=== PATIENT | female | born 1960 | race Caucasian/White ===

== ENCOUNTER 2017-08-29 02:15 | Outpatient (CLI) | payer OTHER ==
[~2017-08-29 02:15] MED LIST: HYDR-2362 PO
[2017-08-30 02:05] LABS: HEMATOCRIT 41.5 % (36-48); HEMOGLOBIN 13.6 g/dL (12.0-16.0); MEAN CORPUSCULAR HEMOGLOBIN 32 pg (27-31); MEAN CORPUSCULAR HGB CONC 33 g/dL (33-37); MEAN CORPUSCULAR VOLUME 99 fL (80-94); PLATELET COUNT (AUTO) 216 K/uL (140-450); RED BLOOD CELL COUNT(AUTO) 4.21 MIL/uL (4.20-5.40); RED CELL DISTRIBUTION WIDTH 12.4 % (11.6-13.7); WHITE BLOOD COUNT (AUTO) 6.3 K/uL (4.8-10.8)
[2017-08-30 02:32] LABS: ALBUMIN 3.9 g/dL (3.4-5.0); ANION GAP 15.2 (8-16); CARBON DIOXIDE 26.6 mmol/L (21-32); CHOL/HDL RATIO 2.5 (1-4.5); CREATININE 1.6 mg/dL (0.6-1.3); THYROID STIMULATING HORMONE 1.19 uIU/mL (0.34-3.74); TOTAL BILIRUBIN 0.6 mg/dL (0.0-1.0)
[2017-08-30 02:48] LABS: LYMPHOCYTES % (MANUAL) 31 % (20-46); MONOCYTES % (MANUAL) 9 % (5-12)
[2017-08-30 04:54] LABS: POTASSIUM 2.8 mmol/L (3.5-5.1)
== END 2017-08-29 17:31 | disposition home or self-care (01) ==
LOC: MLB 02:15
PROVIDERS: ATTEND Internal Medicine Geriatric Medicine
DX: Z76.89 Persons encountering health services in other specified circumstances (principal)
CPT/HCPCS: 36415; 80053; 82306; 83036; 84443; 85025

== ENCOUNTER 2019-01-18 02:55 | Emergency (ER) | payer OTHER ==
[~2019-01-18] VITALS: Ht 157.5 cm; Wt 61.2 kg
--- NOTE | 2019-01-18 02:55 | NUR ---
PT TAKEN TO BED 10
--- NOTE | 2019-01-18 02:55 | NUR ---
58 YO F BIB SELF PRESENTS TO THE ER WITH C/O INTERMITTENT N/V X 2 DAYS. DENIES ABD. PAIN, DIARRHEA, CONSTIPATION, OR URINARY COMPLAINTS. -- PT REPORTS NAUSEA AT THIS TIME. LAST EMESIS 1 HOUR AGO. -- SEVERE BILATERAL ARM/HAND TREMORS NOTED. -- PT APPEARS ANXIOUS BUT IS COOPERATIVE. ANSWERS QUESTIONS APPROPRIATELY. PT POSITIONED FOR COMFORT. HOB ELEVATED. BED IN LOWEST POSITION. VS ELEVATED. DR. BEAVER MADE AWARE.
[2019-01-18 02:57] VITALS: BP 165/92
[2019-01-18] MEDS ORDERED: NACL 0.9% 1,000 ML IV ONE (03:10)
[2019-01-18] MEDS ORDERED: ONDANSETRON 4 MG/2 ML VIAL IVP ONE (03:10)
[2019-01-18 03:17] LABS: BASOPHILS % (AUTO) 0.3 % (0.0-2.0); EOSINOPHILS % (AUTO) 0.8 % (0.0-4.0); HEMATOCRIT 36.4 % (36-48); HEMOGLOBIN 12.4 g/dL (12.0-16.0); LYMPHOCYTES # (AUTO) 0.9 K/uL (2.5-16.5); LYMPHOCYTES % (AUTO) 15.8 % (20.5-51.1); MEAN CORPUSCULAR HEMOGLOBIN 33 pg (27-31); MEAN CORPUSCULAR HGB CONC 34 g/dL (33-37); MEAN CORPUSCULAR VOLUME 97.5 fL (80-94); MONOCYTES # (AUTO) 0.4 K/uL (0.8-1.0); NEUTROPHILS # (AUTO) 4.2 K/uL (1.8-7.7); NEUTROPHILS % (AUTO) 75.1 % (42.2-75.2); PLATELET COUNT (AUTO) 179 K/uL (140-450); RED BLOOD CELL COUNT(AUTO) 3.73 MIL/uL (4.20-5.40); WHITE BLOOD COUNT (AUTO) 5.6 K/uL (4.8-10.8)
[2019-01-18] MEDS ORDERED: LORazepam 2 MG/ML VIAL IVP ONE (03:20)
[2019-01-18 03:31] LABS: ALBUMIN 4.1 g/dL (3.4-5.0); ANION GAP 21.8 (8-16); CARBON DIOXIDE 21.5 mmol/L (21-32); CREATININE 0.9 mg/dL (0.6-1.3); POTASSIUM 3.3 mmol/L (3.5-5.1); TOTAL BILIRUBIN 0.6 mg/dL (0.0-1.0)
--- NOTE | 2019-01-18 05:00 | NUR ---
Patient appears to be resting comfortably in bed. Vital Signs within normal limits. Respirations even and unlabored. Patient requires FiO2 2L via NC for SP02 <92%.
[2019-01-18 06:25] VITALS: BP 135/87
--- NOTE | 2019-01-18 07:13 | NUR ---
Patient discharged with v/s stable. Written and verbal after care instructions given and explained. Patient alert, oriented and verbalized understanding of instructions. Ambulatory with steady gait with assist. All questions addressed prior to discharge. ID band removed. Patient advised to follow up with PMD. Rx of Xanax and Zofran given. Patient educated on indication of medication including possible reaction and side effects. Opportunity to ask questions provided and answered.
== END 2019-01-18 06:22 | disposition home or self-care (01) ==
LOC: MED 02:55
DX: K31.84 Gastroparesis (principal); I10 Essential (primary) hypertension; F17.210 Nicotine dependence, cigarettes, uncomplicated; Z90.49 Acquired absence of other specified parts of digestive tract; Z79.899 Other long term (current) drug therapy
CPT/HCPCS: 36415; 80053; 83690; 85025; 96361; 96374; 96375; 99283; J2060; J2405; J7030

== ENCOUNTER 2020-07-10 04:40 | Emergency (ER) | payer OTHER, SELFPAY ==
[~2020-07-10] VITALS: Ht 157.5 cm; Wt 64.9 kg
[2020-07-10 04:51] VITALS: BP 118/73
--- NOTE | 2020-07-10 04:51 | NUR ---
PT AMBULATED TO BED 12 WITH STEADY GAIT
--- NOTE | 2020-07-10 05:00 | NUR ---
59 YO F BIB SELF TO GET COVID TEST TO RETURN TO WORK. PT HAS N/V X2 DAYS WITH NO OTHER SYMPTOMS BUT WAS TOLD BY [employer] THAT SHE MUST GET A NEGATIVE COVID RESULT TO RETURN TO WORK. ERMD MADE AWARE. [facility] HX: HTN RX: LISINOPRIL
--- NOTE | 2020-07-10 05:01 | NUR ---
HERIBERTO SWAB COLLECTED AND SENT TO LAB
[2020-07-10 05:04] VITALS: BP 118/73
--- NOTE | 2020-07-10 05:04 | NUR ---
Patient discharged with v/s stable. Written and verbal after care instructions given and explained. Patient verbalized understanding. Ambulatory with steady gait. All questions addressed prior to discharge. Advised to follow up with PMD.
== END 2020-07-10 05:04 | disposition home or self-care (01) ==
LOC: MED 04:40
DX: R11.2 Nausea with vomiting, unspecified (principal); I10 Essential (primary) hypertension; Z20.828 Contact with and (suspected) exposure to other viral communicable diseases; Z02.89 Encounter for other administrative examinations; Z79.899 Other long term (current) drug therapy
CPT/HCPCS: 99283

== ENCOUNTER 2020-07-17 14:37 | Emergency (ER) | payer OTHER, SELFPAY ==
[~2020-07-17] VITALS: Ht 157.5 cm; Wt 61.7 kg
[2020-07-17 14:43] VITALS: BP 144/95
--- NOTE | 2020-07-17 14:45 | NUR ---
Pt placed in tent for covid precautions
--- NOTE | 2020-07-17 14:47 | NUR ---
59 y/o female from home presents to ED for PCR covid swab. Pt states she was sent to ED from [facility] for re-swab. C/O vomiting and chills x 2 wks. Denies respiratory symptoms at this time. Afebrile upon arrival. Awake and alert. medhx: HTN
--- NOTE | 2020-07-17 15:00 | NUR ---
Covid swab collected from pt and sent to lab.
--- NOTE | 2020-07-17 15:04 | NUR ---
Pt discharged and left before receiving paper work. VSS upon discharge. Pt understands diagnosis.
[2020-07-17 15:05] VITALS: BP 144/95
== END 2020-07-17 15:04 | disposition home or self-care (01) ==
LOC: MED 14:37
DX: F17.210 Nicotine dependence, cigarettes, uncomplicated (principal); Z03.818 Encounter for observation for suspected exposure to other biological agents ruled out; I10 Essential (primary) hypertension; Z98.890 Other specified postprocedural states
CPT/HCPCS: 99283; U0003